=== PATIENT | female | born 1960 | race American Indian/Alaskan Native ===

== ENCOUNTER 2016-04-29 08:12 | Outpatient (CLI) | payer MEDICAID ==
--- NOTE | 2016-04-29 10:09 | Mammography Report ---
Bilateral diagnostic mammogram and sonogram right inner breast: Compared to 01/04/15. CAD study utilized. Findings: Well-defined circumscribed density measuring 0.9 cm in diameter is again identified in the right breast. Asymmetric density is noted at the upper and probably outer right breast. No interval change is seen. Sonographic examination reveals 0.6 x 0.5 x 0.8 cm oval well defined hypoechoic mass with through-transmission at 2:00 position corresponding to lesion seen on sonogram at 2:00 position in the previous study. No interval change is noted. New hyperechoic circumscribed fairly well defined round mass is noted at 3:00 position 4 cm from nipple. Probably benign. No corresponding density seen on the mammogram. Impression: Probably benign mammographic and sonographic lesions. 6 month followup with right mammogram and sonogram is recommended. BI-RADS CATEGORY: 3 = Probably benign ACR BI-RADS MAMMOGRAPHIC CODES: 0 = Needs additional imaging evaluation; 1 = Negative; 2 = Benign; 3 = Probably benign; 4 = Suspicious; 5 = Malignant; 6 = Known biopsy-proven malignancy COMMENT: 1. Dense breast tissue, i.e., adenosis, fibrocystic changes, etc., may obscure an underlying neoplasm. 2. Approximately 10% of cancers are not detected with mammography. 3. A negative mammography report should not delay biopsy if a clinically suspicious mass is present. COMMENT: Patient follow-up letters are generated in [employer].
== END 2016-04-29 08:13 | disposition home or self-care (01) ==
LOC: US 08:12
PROVIDERS: ATTEND Internal Medicine
DX: N63 Unspecified lump in breast (principal)
CPT/HCPCS: 76642; G0204; 77066

== ENCOUNTER 2016-06-26 08:29 | Emergency (ER) | payer MEDICAID ==
[2016-06-26 09:58] LABS: Bilirubin,Urine NEG (Negative); Blood,Urine NEG (Negative); Ketones,Urine TR mg/dL (Negative); Leukocyte Esterase,Urine NEG (Negative); Mucus,Urine FEW /HPF; Nitrite,Urine NEG (Negative); Protein,Urine <15 mg/dL mg/dL (Negative); Urobilinogen,Urine < 2.0 mg/dL (<2.0); WBC,Urine < 1.0 /HPF (0.0-6.0)
[2016-06-26 10:00] LABS: Basophils % (Auto) 1.7 % (0.0-1.8); Eosinophils % (Auto) 2.2 % (0.0-4.3); Hemoglobin 15.4 gm/dl (10.1-14.3); Mean Corpuscular HGB Conc 32 % (30-34); Mean Corpuscular Hemoglobin 28 pg (28-32); Mean Corpuscular Volume 89 fl (79-97); Platelet Count 294 K/mm3 (140-440); Red Blood Count 5.41 M/mm3 (3.65-5.03); Red Cell Distribution Width 13.7 % (13.2-15.2); White Blood Count 12.9 K/mm3 (4.5-11.0)
[2016-06-26 10:09] LABS: Blood Urea Nitrogen 10 mg/dL (7-17); Calcium 10.1 mg/dL (8.4-10.2); Carbon Dioxide 22 mmol/L (22-30); Glucose 247 mg/dL (65-100)
[2016-06-26 10:10] LABS: Alanine Aminotransferase 15 units/L (7-56); Albumin 4.4 g/dL (3.9-5); Albumin/Globulin Ratio 1.3 %; Alkaline Phosphatase 61 units/L (35-129); Anion Gap 21 mmol/L; Bilirubin,Total 0.5 mg/dL (0.1-1.2); Chloride 100.8 mmol/L (98-107); Lipase 41 units/L (13-60); Potassium 4.5 mmol/L (3.6-5.0); Sodium 139 mmol/L (137-145); Total Protein 7.7 g/dL (6.3-8.2)
--- NOTE | 2016-06-26 13:16 | Emergency Department Report ---
HPI - General Chief Complaint: Abdominal Pain Time Seen by Provider: 06/26/16 09:25 - HPI HPI: Room 4 The patient is a 56-year-old female presenting with a chief complaint of skin lesions. The patient states since March 2016 she has had skin lesions cropping up over her abdomen and breasts. Patient states the lesions are tender were not pruritic. The patient states she has seen her primary physician and has been placed on several course of antibiotics and steroids the lesions did not disappear. Patient denies any preceding trauma. Patient denies any history of fever. The patient states she has not seen a field marketing lead for these lesions Location: [see above] Duration: 4 months Quality: Pain Severity: Moderate Modifying factors: [see above] Context: [see above] Mode of transportation: [not driving] ED Past Medical Hx - Past Medical History Hx Hypertension: Yes Hx Diabetes: Yes Hx Psychiatric Treatment: Yes (bipolar/depression) Additional medical history: sleep apnea / cholesterol / hep c / neuropathy - Surgical History Hx Cholecystectomy: Yes Additional Surgical History: c sections x 4 - Family History Family history: no significant - Social History Smoking Status: Current Every Day Smoker Substance Use Type: None - Medications Home Medications: Home Medications Medication Instructions Recorded Confirmed Last Taken Type Insulin Lispro [HumaLOG VIAL] See Protocol SQ ACHS 02/05/15 06/26/16 06/13/16 History Simvastatin [Zocor TAB] 40 mg PO QHS 02/05/15 06/26/16 06/25/16 History HYDROcodone/APAP 5-325 [[place] 1 - 2 each PO Q6HR PRN #10 tablet 06/26/16 Unknown Rx 5/325] Ibuprofen [Motrin 800 MG tab] 800 mg PO Q8HR PRN #20 tablet 06/26/16 Unknown Rx Lyrica 75 mg PO DAILY 06/26/16 06/26/16 06/25/16 History Protonix TAB 10 mg PO DAILY 06/26/16 06/26/16 06/25/16 History Sulfamethoxazole/Trimethoprim 1 each PO BID #14 tablet 06/26/16 Unknown Rx [Bactrim DS TAB] ED Review of Systems ROS: Stated complaint: PT BELIEVES TO HAVE STAPH OR VILLASENOR INFECTION Other details as noted in HPI Comment: All other systems reviewed and negative Constitutional: denies: chills, fever Eyes: denies: eye pain, eye discharge, vision change ENT: denies: ear pain, throat pain Respiratory: denies: cough, shortness of breath, wheezing Cardiovascular: denies: chest pain, palpitations Endocrine: no symptoms reported Gastrointestinal: denies: abdominal pain, nausea, diarrhea Genitourinary: denies: urgency, dysuria, discharge Musculoskeletal: denies: back pain, joint swelling, arthralgia Skin: lesions Neurological: denies: headache, weakness, paresthesias Psychiatric: denies: anxiety, depression Hematological/Lymphatic: denies: easy bleeding, easy bruising Physical Exam - Physical Exam Vital Signs: Vital Signs 06/26/16 06/26/16 06/26/16 08:41 11:01 11:11 Temperature 98.8 F 98.2 F Pulse Rate 106 H 83 Respiratory 18 12 Rate Blood Pressure 160/94 Blood Pressure 146/94 [Left] O2 Sat by Pulse 99 100 100 Oximetry Physical Exam: GENERAL: The patient is well-developed well-nourished female sitting on stretcher not appearing to be in acute distress. [] HEENT: Normocephalic. Atraumatic. Extraocular motions are intact. Patient has moist mucous membranes. NECK: Supple. Trachea midline CHEST/LUNGS: There is no respiratory distress noted. ABDOMEN: Abdomen is soft, nontender. There are lesions visualized on the abdomen (see skin below). There is no abdominal distention. SKIN: There is of hyperpigmentation consistent with previous folliculitis present on abdomen. There is a subacute lesion on the left breast with an erythematous base that is tender to palpation. There is no fluctuance NEURO: The patient is awake, alert, and oriented. The patient is cooperative. The patient has normal speech MUSCULOSKELETAL: There is no evidence of acute injury. ED Course Vital Signs 06/26/16 06/26/16 06/26/16 08:41 11:01 11:11 Temperature 98.8 F 98.2 F Pulse Rate 106 H 83 Respiratory 18 12 Rate Blood Pressure 160/94 Blood Pressure 146/94 [Left] O2 Sat by Pulse 99 100 100 Oximetry ED Medical Decision Making - Lab Data Result diagrams: 06/26/16 09:20 06/26/16 09:20 Laboratory Tests 06/26/16 06/26/16 06/26/16 08:51 09:01 09:20 WBC 12.9 H RBC 5.41 H Hgb 15.4 H Hct 48.0 H MCV 89 MCH 28 MCHC 32 RDW 13.7 Plt Count 294 Lymph % (Auto) 27.3 [place] % (Auto) 6.2 Eos % (Auto) 2.2 Baso % (Auto) 1.7 Lymph # 3.5 [place] # 0.8 Eos # 0.3 Baso # 0.2 H Seg Neutrophils % 62.6 Seg Neutrophils # 8.1 H Sodium Potassium Chloride Carbon Dioxide Anion Gap BUN Creatinine Estimated GFR BUN/Creatinine Ratio Glucose POC Glucose 244 H Calcium Total Bilirubin AST ALT Alkaline Phosphatase Total Protein Albumin Albumin/Globulin Ratio Lipase Urine Color Yellow Urine Turbidity Clear Urine pH 6.0 Ur Specific [place] 1.005 Urine Protein <15 mg/dl Urine Glucose (UA) >=500 Urine Ketones Tr Urine Blood Neg Urine Nitrite Neg Urine Bilirubin Neg Urine Urobilinogen < 2.0 Ur Leukocyte Esterase Neg Urine WBC (Auto) < 1.0 Urine RBC (Auto) 3.0 U Epithel Cells (Auto) 12.0 Urine Mucus Few 06/26/16 09:20 WBC RBC Hgb Hct MCV MCH MCHC RDW Plt Count Lymph % (Auto) [place] % (Auto) Eos % (Auto) Baso % (Auto) Lymph # [place] # Eos # Baso # Seg Neutrophils % Seg Neutrophils # Sodium 139 Potassium 4.5 Chloride 100.8 Carbon Dioxide 22 Anion Gap 21 BUN 10 Creatinine 1.0 Estimated GFR > 60 BUN/Creatinine Ratio 10.00 Glucose 247 H POC Glucose Calcium 10.1 Total Bilirubin 0.5 AST 20 ALT 15 Alkaline Phosphatase 61 Total Protein 7.7 Albumin 4.4 Albumin/Globulin Ratio 1.3 Lipase 41 Urine Color Urine Turbidity Urine pH Ur Specific [place] Urine Protein Urine Glucose (UA) Urine Ketones Urine Blood Urine Nitrite Urine Bilirubin Urine Urobilinogen Ur Leukocyte Esterase Urine WBC (Auto) Urine RBC (Auto) U Epithel Cells (Auto) Urine Mucus - Differential Diagnosis folliculitis, abscess, dermatitis Critical care attestation.: If time is entered above; I have spent that time in minutes in the direct care of this critically ill patient, excluding procedure time. ED Disposition Clinical Impression: Folliculitis Disposition: DISCHARGED TO HOME OR SELFCARE Is pt being admited?: No Does the pt Need Aspirin: No Condition: Stable Instructions: Abdominal Pain (ED), Folliculitis (ED) Additional Instructions: Return to the emergency department immediately should you develop worsening symptoms, fever, inability to tolerate food or liquid or any other concerns. Prescriptions: HYDROcodone/APAP 5-325 [[place] 5/325] 1 - 2 each PO Q6HR PRN #10 tablet PRN Reason: Pain Ibuprofen [Motrin 800 MG tab] 800 mg PO Q8HR PRN #20 tablet PRN Reason: Pain Sulfamethoxazole/Trimethoprim [Bactrim DS TAB] 1 each PO BID #14 tablet Referrals: [facility] [Outside] - 3-5 Days CAITLIN FLORES MD [Staff Physician] - 3-5 Days (Dr. Flores is a primary physician. Please follow up with him to be established as a patient) NAMRATA PYLE MD [Staff Physician] - [facility] (Dr. Pyle is a field marketing lead. Please follow up with him for further evaluation) Time of Disposition: 13:23
[2016-06-26 13:41] VITALS: BP 131/83
== END 2016-06-26 13:39 | disposition home or self-care (01) ==
LOC: ED 08:29
DX: L73.9 Follicular disorder, unspecified (principal); F31.9 Bipolar disorder, unspecified; I10 Essential (primary) hypertension; E11.9 Type 2 diabetes mellitus without complications; F17.200 Nicotine dependence, unspecified, uncomplicated; Z79.4 Long term (current) use of insulin
CPT/HCPCS: 36415; 80053; 81001; 82962; 83690; 85025; 99283

== ENCOUNTER 2016-09-01 15:18 | Emergency (ER) | payer MEDICAID ==
--- NOTE | 2016-09-01 15:44 | Emergency Department Report ---
Chief Complaint: High BP Stated Complaint: HEADACHE AND HTN Time Seen by Provider: 09/01/16 15:41 - HPI History of Present Illness: PT states she has been off her bp medication x 1 month. PT c/o headache today. - ROS Review of Systems: - cp + sob + palpitations - Exam Physical Exam: P tis alert and appropriate in triage no focal weakness noted MSE screening note: Focused history and physical exam performed. Due to findings the following was ordered: ekg, labs, xr, ct ED Disposition for MSE Condition: Stable
[2016-09-01 16:29] LABS: Hemoglobin 15.3 gm/dl (10.1-14.3); Mean Corpuscular HGB Conc 33 % (30-34); Mean Corpuscular Hemoglobin 29 pg (28-32); Mean Corpuscular Volume 86 fl (79-97); Platelet Count 277 K/mm3 (140-440); Red Blood Count 5.32 M/mm3 (3.65-5.03); Red Cell Distribution Width 14.3 % (13.2-15.2); White Blood Count 12.3 K/mm3 (4.5-11.0)
[2016-09-01 16:36] LABS: Alanine Aminotransferase 15 units/L (7-56); Albumin 4.5 g/dL (3.9-5); Albumin/Globulin Ratio 1.5 %; Alkaline Phosphatase 50 units/L (35-129); Anion Gap 17 mmol/L; BUN/Creatinine Ratio 11.25; Blood Urea Nitrogen 9 mg/dL (7-17); Carbon Dioxide 24 mmol/L (22-30); Chloride 104.8 mmol/L (98-107); Glucose 57 mg/dL (65-100); Sodium 142 mmol/L (137-145); Total Protein 7.5 g/dL (6.3-8.2)
--- NOTE | 2016-09-01 16:40 | Cat Scan Report ---
CT scan of head without contrast: History: Headache. Findings: Ventricles are normal in size and midline in location. No evidence of acute ischemia, hemorrhage or mass. No extra axial fluid collection. Normal brainstem and cerebellum. Normal sinuses and mastoid air cells. Impression: No acute intracranial abnormality.
[2016-09-01 16:42] LABS: INR 1.02 (0.87-1.13)
[2016-09-01 16:43] LABS: Partial Thromboplastin Time 35.4 Sec. (24.2-36.6)
[2016-09-01 18:55] LABS: Blastocytes % (Manual) 0 %
[2016-09-01 18:56] LABS: Anisocytosis 1+; Diff Status Complete; Platelet Estimate Consistent w Auto
[2016-09-01] MEDS ORDERED: CATAPRES ONE (22:41)
[2016-09-01] MEDS ORDERED: ANTIVERT PO ONE (22:47)
[2016-09-01] MEDS ORDERED: CATAPRES PO ONE (22:47)
[2016-09-01] MEDS ORDERED: NORCO 5/325 PO ONE (22:47)
--- NOTE | 2016-09-01 22:54 | Emergency Department Report ---
HPI - General Chief Complaint: High BP Time Seen by Provider: 09/01/16 15:41 - HPI HPI: Room 9 The patient is a 56-year-old help with a chief complaint of headache. The patient states she been off blood pressure medication (lisinopril) for approximately 30 days. Patient states today at 13:00 she developed a left occipital headache associated with dizziness and blurred vision. Patient gives her pain a score of 10/10. Patient denies nausea vomiting or fever. Patient continues to complain of a headache and dizziness Location: [see above] Duration: Constant since 13:00 Quality: ache Severity: 12/22 Modifying factors: [see above] Context: [see above] Mode of transportation: [not driving] ED Past Medical Hx - Past Medical History Previous Medical History?: Yes Hx Hypertension: Yes Hx CVA: Yes Hx Diabetes: Yes Hx Psychiatric Treatment: Yes (bipolar/depression) Additional medical history: sleep apnea / cholesterol / hep c / neuropathy - Surgical History Past Surgical History?: Yes Hx Cholecystectomy: Yes Additional Surgical History: c sections x 4 - Family History Family history: no significant - Social History Smoking Status: Current Every Day Smoker (one to 2 cigarettes daily) Substance Use Type: None - Medications Home Medications: Home Medications Medication Instructions Recorded Confirmed Last Taken Type Insulin Lispro [HumaLOG VIAL] See Protocol SQ ACHS 02/05/15 06/26/16 06/13/16 History Simvastatin [Zocor TAB] 40 mg PO QHS 02/05/15 06/26/16 06/25/16 History HYDROcodone/APAP 5-325 [[place] 1 - 2 each PO Q6HR PRN #10 tablet 06/26/16 Unknown Rx 5/325] Ibuprofen [Motrin 800 MG tab] 800 mg PO Q8HR PRN #20 tablet 06/26/16 Unknown Rx Lyrica 75 mg PO DAILY 06/26/16 06/26/16 06/25/16 History Protonix TAB 10 mg PO DAILY 06/26/16 06/26/16 06/25/16 History Sulfamethoxazole/Trimethoprim 1 each PO BID #14 tablet 06/26/16 Unknown Rx [Bactrim DS TAB] Butalb/Acetamin/Caff 50-325-40 2 tab PO Q8HR PRN #20 tablet 09/01/16 Unknown Rx [Fioricet] Meclizine [Antivert] 25 mg PO TID PRN #20 tablet 09/01/16 Unknown Rx amLODIPine [Norvasc] 5 mg PO DAILY #90 tab 09/01/16 Unknown Rx ED Review of Systems ROS: Stated complaint: HEADACHE AND HTN Other details as noted in HPI Comment: All other systems reviewed and negative Constitutional: denies: chills, fever Eyes: denies: eye pain, eye discharge, vision change ENT: denies: ear pain, throat pain Respiratory: denies: cough, shortness of breath, wheezing Cardiovascular: denies: chest pain, palpitations Endocrine: no symptoms reported Gastrointestinal: denies: abdominal pain, nausea, diarrhea Genitourinary: denies: urgency, dysuria, discharge Musculoskeletal: denies: back pain, joint swelling, arthralgia Skin: denies: rash, lesions Neurological: headache Psychiatric: denies: anxiety, depression Hematological/Lymphatic: denies: easy bleeding, easy bruising Physical Exam - Physical Exam Vital Signs: Vital Signs 09/01/16 15:43 Temperature 98.5 F Pulse Rate 80 Respiratory 16 Rate Blood Pressure 194/119 O2 Sat by Pulse 100 Oximetry Vital Signs 09/01/16 09/01/16 09/01/16 15:43 22:31 22:41 Temperature 98.5 F Pulse Rate 80 67 69 Respiratory 16 17 14 Rate Blood Pressure 194/119 204/103 Blood Pressure [Left] O2 Sat by Pulse 100 100 100 Oximetry 09/01/16 09/01/16 09/01/16 22:51 22:58 23:01 Temperature Pulse Rate 68 Respiratory 15 Rate Blood Pressure 204/103 168/82 Blood Pressure 204/103 [Left] O2 Sat by Pulse 99 100 95 Oximetry 09/01/16 09/01/16 09/01/16 23:11 23:21 23:30 Temperature Pulse Rate Respiratory Rate Blood Pressure 168/82 204/103 167/86 Blood Pressure [Left] O2 Sat by Pulse 99 99 96 Oximetry 09/02/16 00:19 Temperature Pulse Rate 61 Respiratory 20 Rate Blood Pressure Blood Pressure 143/79 [Left] O2 Sat by Pulse 97 Oximetry Physical Exam: GENERAL: The patient is well-developed well-nourished female lying on stretcher not appearing to be in acute distress. [] HEENT: Normocephalic. Atraumatic. Extraocular motions are intact. Patient has moist mucous membranes. NECK: Supple. No meningitic signs are noted. Trachea midline CHEST/LUNGS: Clear to auscultation. There is no respiratory distress noted. HEART/CARDIOVASCULAR: Regular. There is no tachycardia. There is no gallop rub or murmur. ABDOMEN: Abdomen is soft, nontender. Patient has normal bowel sounds. There is no abdominal distention. SKIN: There is no rash. There is no edema. There is no diaphoresis. NEURO: The patient is awake, alert, and oriented. The patient is cooperative. The patient has no focal neurologic deficits. The patient has normal speech. Cranial nerves II through XII grossly intact, no drift MUSCULOSKELETAL: There is no evidence of acute injury. ED Course Vital Signs 09/01/16 15:43 Temperature 98.5 F Pulse Rate 80 Respiratory 16 Rate Blood Pressure 194/119 O2 Sat by Pulse 100 Oximetry ED Medical Decision Making - Lab Data Result diagrams: 09/01/16 15:56 09/01/16 15:56 Laboratory Tests 09/01/16 09/01/16 09/01/16 15:56 15:56 15:56 WBC 12.3 H RBC 5.32 H Hgb 15.3 H Hct 46.0 H MCV 86 MCH 29 MCHC 33 RDW 14.3 Plt Count 277 Lymph # Syrup Maker Add Manual Diff Complete Total Counted 100 Seg Neuts % (Manual) 50.0 Band Neutrophils % 4.0 Lymphocytes % (Manual) 39.0 H Reactive Lymphs % (Man) 0 Monocytes % (Manual) 4.0 Eosinophils % (Manual) 2.0 Basophils % (Manual) 1.0 Metamyelocytes % 0 Myelocytes % 0 Promyelocytes % 0 Blast Cells % 0 Nucleated RBC % Not Reportable Seg Neutrophils # Man 6.2 Band Neutrophils # 0.5 Lymphocytes # (Manual) 4.8 Abs React Lymphs (Man) 0.0 Monocytes # (Manual) 0.5 Eosinophils # (Manual) 0.2 Basophils # (Manual) 0.1 Metamyelocytes # 0.0 Myelocytes # 0.0 Promyelocytes # 0.0 Blast Cells # 0.0 WBC Morphology Not Reportable Hypersegmented Neuts Not Reportable Hyposegmented Neuts Not Reportable Hypogranular Neuts Not Reportable Smudge Cells Not Reportable Toxic Granulation Not Reportable Toxic Vacuolation Not Reportable Dohle Bodies Not Reportable Pelger-Huet Anomaly Not Reportable [place] Rods Not Reportable Platelet Estimate Consistent w auto Clumped Platelets Not Reportable Plt Clumps, EDTA Not Reportable Large Platelets Not Reportable Giant Platelets Not Reportable Platelet Satelliting Not Reportable Plt Morphology Comment Not Reportable RBC Morphology Not Reportable Dimorphic RBCs Not Reportable Polychromasia Not Reportable Hypochromasia Not Reportable Poikilocytosis Not Reportable Anisocytosis 1+ Microcytosis Not Reportable Macrocytosis Not Reportable Spherocytes Not Reportable Pappenheimer Bodies Not Reportable Sickle Cells Not Reportable Target Cells Not Reportable Tear Drop Cells Not Reportable Ovalocytes Not Reportable Helmet Cells Not Reportable [place] Bodies Not Reportable [place] Rings Not Reportable [place] Cells Not Reportable Bite Cells Not Reportable Crenated Cell Not Reportable Elliptocytes Not Reportable Acanthocytes ([place]) Not Reportable Rouleaux Not Reportable Hemoglobin C Crystals Not Reportable Schistocytes Not Reportable Malaria parasites Not Reportable [place] Bodies Not Reportable Hem Pathologist Commnt No PT 13.3 INR 1.02 APTT 35.4 Sodium 142 Potassium 4.0 Chloride 104.8 Carbon Dioxide 24 Anion Gap 17 BUN 9 Creatinine 0.8 Estimated GFR > 60 BUN/Creatinine Ratio 11.25 Glucose 57 L POC Glucose Calcium 10.0 Total Bilirubin 0.50 AST 19 ALT 15 Alkaline Phosphatase 50 Troponin T NT-Pro-B Natriuret Pep Total Protein 7.5 Albumin 4.5 Albumin/Globulin Ratio 1.5 09/01/16 09/01/16 15:56 22:45 WBC RBC Hgb Hct MCV MCH MCHC RDW Plt Count Lymph # Add Manual Diff Total Counted Seg Neuts % (Manual) Band Neutrophils % Lymphocytes % (Manual) Reactive Lymphs % (Man) Monocytes % (Manual) Eosinophils % (Manual) Basophils % (Manual) Metamyelocytes % Myelocytes % Promyelocytes % Blast Cells % Nucleated RBC % Seg Neutrophils # Man Band Neutrophils # Lymphocytes # (Manual) Abs React Lymphs (Man) Monocytes # (Manual) Eosinophils # (Manual) Basophils # (Manual) Metamyelocytes # Myelocytes # Promyelocytes # Blast Cells # WBC Morphology Hypersegmented Neuts Hyposegmented Neuts Hypogranular Neuts Smudge Cells Toxic Granulation Toxic Vacuolation Dohle Bodies Pelger-Huet Anomaly [place] Rods Platelet Estimate Clumped Platelets Plt Clumps, EDTA Large Platelets Giant Platelets Platelet Satelliting Plt Morphology Comment RBC Morphology Dimorphic RBCs Polychromasia Hypochromasia Poikilocytosis Anisocytosis Microcytosis Macrocytosis Spherocytes Pappenheimer Bodies Sickle Cells Target Cells Tear Drop Cells Ovalocytes Helmet Cells [place] Bodies [place] Rings [place] Cells Bite Cells Crenated Cell Elliptocytes Acanthocytes ([place]) Rouleaux Hemoglobin C Crystals Schistocytes Malaria parasites [place] Bodies Hem Pathologist Commnt PT INR APTT Sodium Potassium Chloride Carbon Dioxide Anion Gap BUN Creatinine Estimated GFR BUN/Creatinine Ratio Glucose POC Glucose 144 H Calcium Total Bilirubin AST ALT Alkaline Phosphatase Troponin T < 0.010 NT-Pro-B Natriuret Pep 66.17 Total Protein Albumin Albumin/Globulin Ratio - EKG Data -: EKG Interpreted by Me EKG shows normal: sinus rhythm Rate: normal - EKG Data When compared to previous EKG there are: no significant change Interpretation: unchanged when compared t (02/19/2016) - Radiology Data Radiology results: report reviewed (CT head), image reviewed (CT head, chest x- ray) interpreted by me: Chest x-ray-no focal infiltrates, no pneumothorax CT head (read by radiologist)-no acute intracranial abnormality - Differential Diagnosis ICH, hypertensive urgency, vertigo Critical care attestation.: If time is entered above; I have spent that time in minutes in the direct care of this critically ill patient, excluding procedure time. ED Disposition Clinical Impression: Hypertension, Headache Disposition: DC-01 TO HOME OR SELFCARE Is pt being admited?: No Does the pt Need Aspirin: No Condition: Stable Instructions: Hypertension (ED) Additional Instructions: Return to the emergency department immediately should you develop worsening symptoms, fever, inability to tolerate food or liquid or any other concerns. Prescriptions: amLODIPine [Norvasc] 5 mg PO DAILY #90 tab Butalb/Acetamin/Caff 50-325-40 [Fioricet] 2 tab PO Q8HR PRN #20 tablet PRN Reason: Headache Meclizine [Antivert] 25 mg PO TID PRN #20 tablet PRN Reason: Vertigo Referrals: PRIMARY CARE, [Primary Care Provider] - 3-5 Days [facility] [Outside] - 3-5 Days Time of Disposition: 00:27
[2016-09-02 00:20] VITALS: BP 143/79
--- NOTE | 2016-09-02 07:31 | XRay Report ---
CHEST 2 VIEWS INDICATION: Headache. COMPARISON: 02/19/2016. FINDINGS: PA and lateral chest radiographs demonstrate normal cardiomediastinal silhouette. Clear lungs. Intact bones. CONCLUSION: No acute disease, stable. Thank you for the opportunity to participate in this patient's care.
== END 2016-09-02 00:51 | disposition home or self-care (01) ==
LOC: ED 15:18
DX: I10 Essential (primary) hypertension (principal); R51 Headache; Z86.73 Personal history of transient ischemic attack (TIA), and cerebral infarction without residual deficits; E11.9 Type 2 diabetes mellitus without complications; F32.9 Major depressive disorder, single episode, unspecified; E78.00 Pure hypercholesterolemia, unspecified
CPT/HCPCS: 36415; 70450; 71020; 80053; 82962; 83880; 84484; 85007; 85025; 85610; 85730; 93005; 93010